=== PATIENT | female | born 1955 | race Caucasian/White ===

== ENCOUNTER 2018-09-05 17:50 | Inpatient (IN) | payer OTHER ==
[~2018-09-05] VITALS: Ht 154.9 cm; Wt 37.3 kg
--- NOTE | ~2018-09-05 | O ---
[facility] [place] [address] OPERATIVE REPORT Name: IAN JEAN Room #: 352-P [facility] IN M.R.#: [id number] Admission: 09/05/18 Attend Phys: Emil Putnam MD Discharge: Date of : 59 Report #: [id number] THIS REPORT FOR: //name// CC: [facility] physician/PCP Emil Putnam DATE OF SERVICE: 09/07/2018 PREOPERATIVE DIAGNOSIS: Left hip femoral neck fracture. POSTOPERATIVE DIAGNOSIS: Left hip femoral neck fracture. PROCEDURE: Left hip percutaneous screw fixation femoral neck fracture. SURGEON: Feliz Richey M.D. SEAM STAY STITCHER: Monica Valdivia. ANESTHESIA: General. ESTIMATED BLOOD LOSS: Minimal. DRAINS: None. TOURNIQUETS: None. COMPLICATIONS: None. DESCRIPTION OF PROCEDURE: The patient was brought to the operating room where she was placed under general anesthesia. Once under adequate general anesthesia, she was placed onto the fracture table. The left lower extremity was then placed into traction and reduction maneuver was achieved on the femoral neck fracture. Once reduced as verified under fluoroscopy, the left hip was then prepped and draped in sterile manner. Utilizing fluoroscopy for guidance, three 7.3-mm cannulated screws were then placed under fluoroscopic guidance for fixation in an inverted triangle shape. Once complete, excellent fixation was achieved. The wound was irrigated copiously and closed with 2-0 Vicryl in subcutaneous tissues and renetta for the skin. The wounds were dressed with Xeroform, 4 x 4s, and sterile soft compressive dressing was placed. There were no complications from the procedure. The patient tolerated the procedure well and went to the recovery room without incident. By: [id number] Feliz Richey MD /nt
--- NOTE | ~2018-09-05 | HC ---
[facility] [place] [address] CONSULTATION Name: IAN JEAN Room #: 352-P ADM IN M.R.#: [id number] Admission: 09/05/18 Attend Phys: Emil Putnam MD Discharge: Date of : 59 Report #: [id number] THIS REPORT FOR: //name// CC: [facility] physician/PCP Emil Putnam CHIEF COMPLAINT: Left hip pain. HISTORY OF PRESENT ILLNESS: The patient is a pleasant 63-year-old female who was admitted directly from the [facility] yesterday for a left hip fracture. She had an unwitnessed fall on Tuesday afternoon sometime between 2:00 and 6:00 p.m., but was not found until 3:00 a.m. Tuesday by her boyfriend. He was unable to get her up, so he called the patient's son. He called 911 and is there when the paramedics showed up to get her off of the floor. She complained of left hip pain at that time and was taken to the Emergency Department at [facility]. She had x-rays taken in the Emergency Department there showing a left hip fracture and was transferred to [facility] for further care. ALLERGIES: ACETAMINOPHEN, AMOXICILLIN, BISMUTH SUBSALICYLATE, BUPROPION, CAMPHOR, CARBAMAZEPINE, CYCLOBENZAPRINE, EUCALYPTUS, MENTHOL, PETROLEUM, SOAP, TURPENTINE. MEDICATIONS: Please see MAR for current medications. HOME MEDICATIONS: Include Lexapro, Cymbalta, Neurontin, clonazepam, Advair, Spiriva, Remeron, ProAir, nicotine transdermal patch, Flonase. PAST MEDICAL AND SURGICAL HISTORY: Significant for COPD, breast cancer with right mastectomy, skull fracture, anxiety, depression, GERD. SOCIAL HISTORY: The patient reports that she lives at home, is on 3 liters of oxygen at home, typically ambulates without assistance. She is a former smoker with a 46-blze-qavv history, she quit smoking less than a year ago. The patient does report past alcohol use daily, but quit drinking approximately 1 year ago. PHYSICAL EXAMINATION: VITAL SIGNS: Temperature 36.7 degrees, pulse 100, blood pressure 117/80, bedside pulse oximetry is 99. GENERAL: The patient is awake and alert, in no acute distress; she is mildly confused; her son is at bedside. EXTREMITIES: Bilateral lower extremities are neurovascularly intact. The patient denies any tenderness to palpation of the anterior, lateral, or posterior hip. She also denies any tenderness to palpation of the thigh or knee. The patient does complain of pain with motion of the left hip. IMAGING: Two views of the left hip performed on 09/06/2018 show a subcapital [address] [address] CONSULTATION Name: IAN JEAN Room #: 352-P [facility] IN M.R.#: [id number] Admission: 09/05/18 Attend Phys: Emil Putnam MD Discharge: Date of : 59 Report #: [id number] left hip fracture, although this appears minimally displaced on the frontal view. The lateral view suggests there is almost complete displacement at the fracture site. The pelvis and right hip are intact. IMPRESSION: Minimally displaced left subcapital femoral neck fracture. PLAN: Discussed with the patient and her son the treatment options of the patient's left hip fracture, discussed that after reviewing her x-rays, Dr. Rodriguez believe that she is a candidate for a left hip percutaneous pinning. Discussed postoperative rehabilitation course that she would need to remain nonweightbearing on the left hip for 8-12 weeks. Also discussed the need to take follow up radiographs to assess fracture healing. We are awaiting pulmonary clearance, once this has been obtained, then we could proceed with surgery for the left hip. We will plan for surgery tomorrow pending pulmonary clearance. By: 1615 02 DELIO Hanley /nt
[2018-09-05 19:17] VITALS: BP 157/80
[2018-09-05] MEDS ORDERED: LEXAPRO 10 MG T10 M2 PO (20:18)
[2018-09-05] MEDS ORDERED: CYMBALTA30 MG PO (20:18)
[2018-09-05] MEDS ORDERED: NEURONTIN 400400 M1 (20:19)
[2018-09-05] MEDS ORDERED: CLONAZEPAM 0.50.5 M1 (20:20)
[2018-09-05] MEDS ORDERED: ADVAIR HFA 230M12 GM INH (20:22)
[2018-09-05] MEDS ORDERED: SPIRIVA INH (20:22)
[2018-09-05] MEDS ORDERED: REMERON15 MG PO (20:22)
[2018-09-05] MEDS ORDERED: PROAIR RESPICL90 MCG (20:25)
[2018-09-05] MEDS ORDERED: FLONASE 0.05%50 MCG NASAL (20:25)
[2018-09-05] MEDS ORDERED: NICOTINE TRANSD21 M1 (20:25)
[2018-09-05 23:50] LABS: BE(vivo) 20.5 mmol/L (-2 to +3); HCO3 50.1 mmol/L (22.0-26.0); PCO2 85.7 mmHg (35.0-45.0); PO2 67.5 mmHg (80.0-100.0); pH 7.385 (7.360-7.450)
[2018-09-06 01:15] VITALS: BP 148/86
[2018-09-06 02:02] LABS: URINE BILIRUBIN NEGATIVE (Negative); URINE BLOOD 2+ (Negative); URINE CLARITY CLEAR; URINE COLOR YELLOW; URINE GLUCOSE-RANDOM* NEGATIVE (Negative); URINE KETONES TRACE (Negative); URINE LEUKOCYTES-REFLEX NEGATIVE (Negative); URINE NITRITE-REFLEX NEGATIVE (Negative); URINE PROTEIN (DIPSTICK) 1+ (Negative); URINE SPECIFIC GRAVITY 1.015 (1.005-1.035)
[2018-09-06 02:17] LABS: CASTS None Seen /LPF (None Seen); SQUAMOUS 0-3 Few /LPF (0-3); URINE WBC-REFLEX 0-5 Rare /HPF (0-5)
[2018-09-06 02:18] LABS: CRYSTALS None Seen /LPF (None Seen)
[2018-09-06 04:25] VITALS: BP 153/93
[2018-09-06 05:39] LABS: HEMATOCRIT 35.3 % (37.0-47.0); HEMOGLOBIN 11.8 gm/dL (12.0-15.0); MCH 31.7 pg (26.0-34.0); MCHC 33.4 g/dL (28.0-37.0); MCV 95.1 fL (80.0-100.0); RBC 3.71 mil/uL (4.20-5.00); RDW 13.4 % (10.5-14.5); WBC 5.1 thou/uL (4.0-11.0)
[2018-09-06 05:49] LABS: PROTIME 10.1 Seconds (9.3-11.4)
[2018-09-06 05:52] LABS: ALBUMIN 3.5 g/dL (3.4-5.0); ANION GAP 1 mmol/L (7-16); BUN 8 mg/dL (7-18); CALCIUM 9.4 mg/dL (8.5-10.1); CHLORIDE 93 mmol/L (98-107); CO2 42 mmol/L (21-32); CREATININE 0.4 mg/dL (0.6-1.0); GLUCOSE 108 mg/dL (74-106); MAGNESIUM 2.6 mg/dL (1.8-2.4); POTASSIUM 3.9 mmol/L (3.5-5.1); SGOT 17 U/L (15-37); SGPT 21 U/L (30-65); SODIUM 136 mmol/L (136-145); TOTAL BILIRUBIN 0.8 mg/dL (<0.1-1.0); TOTAL PROTEIN 6.8 g/dL (6.4-8.2); TROPONIN-I <0.06 ng/mL (<0.06)
[2018-09-06 09:07] VITALS: BP 117/80
[2018-09-06 09:24] LABS: BE(vivo) 14.6 mmol/L (-2 to +3); HCO3 42.1 mmol/L (22.0-26.0); PO2 90.9 mmHg (80.0-100.0); pH 7.419 (7.360-7.450); sO2 96.8 % (92.0-98.0)
[2018-09-06 09:25] LABS: PCO2 66.5 mmHg (35.0-45.0)
[2018-09-06 16:14] VITALS: BP 139/82
[2018-09-06 19:08] VITALS: BP 122/84
[2018-09-07] VITALS (15 sets, daily range): BP systolic 109–155; BP diastolic 50–89
[2018-09-07 09:13] LABS: HEMATOCRIT 33.4 % (37.0-47.0); HEMOGLOBIN 11.3 gm/dL (12.0-15.0); MCH 31.8 pg (26.0-34.0); MCHC 33.9 g/dL (28.0-37.0); MCV 93.9 fL (80.0-100.0); RBC 3.56 mil/uL (4.20-5.00); RDW 13.5 % (10.5-14.5); WBC 5.7 thou/uL (4.0-11.0)
[2018-09-07 09:21] LABS: CALCIUM 9.4 mg/dL (8.5-10.1); CREATININE 0.4 mg/dL (0.6-1.0); POTASSIUM 3.8 mmol/L (3.5-5.1)
[2018-09-08 04:04] VITALS: BP 115/66
[2018-09-08 07:45] VITALS: BP 148/82
[2018-09-08 08:06] LABS: HEMATOCRIT 31.7 % (37.0-47.0); HEMOGLOBIN 10.7 gm/dL (12.0-15.0); MCH 32.2 pg (26.0-34.0); MCHC 33.6 g/dL (28.0-37.0); MCV 95.6 fL (80.0-100.0); RBC 3.31 mil/uL (4.20-5.00); RDW 13.2 % (10.5-14.5); WBC 6.1 thou/uL (4.0-11.0)
[2018-09-08 08:17] LABS: ANION GAP < 0 mmol/L (7-16); BUN 7 mg/dL (7-18); CALCIUM 8.9 mg/dL (8.5-10.1); CHLORIDE 95 mmol/L (98-107); CO2 41 mmol/L (21-32); CREATININE 0.4 mg/dL (0.6-1.0); GLUCOSE 130 mg/dL (74-106); MAGNESIUM 1.6 mg/dL (1.8-2.4); POTASSIUM 3.7 mmol/L (3.5-5.1); SODIUM 135 mmol/L (136-145)
[2018-09-08 11:41] VITALS: BP 142/77
[2018-09-08 15:42] VITALS: BP 152/92
[2018-09-08 21:14] VITALS: BP 140/82
[2018-09-09] VITALS (7 sets, daily range): BP systolic 107–142; BP diastolic 51–81
[2018-09-09 05:50] LABS: HEMATOCRIT 33.1 % (37.0-47.0); HEMOGLOBIN 11.1 gm/dL (12.0-15.0); MCH 32.1 pg (26.0-34.0); MCHC 33.4 g/dL (28.0-37.0); MCV 96.2 fL (80.0-100.0); RBC 3.44 mil/uL (4.20-5.00); RDW 13.5 % (10.5-14.5); WBC 4.4 thou/uL (4.0-11.0)
[2018-09-09 06:07] LABS: CALCIUM 8.9 mg/dL (8.5-10.1); CREATININE 0.3 mg/dL (0.6-1.0); MAGNESIUM 1.6 mg/dL (1.8-2.4)
[2018-09-10 03:50] VITALS: BP 118/63
[2018-09-10 04:17] LABS: BE(vivo) 21.3 mmol/L (-2 to +3); HCO3 52.8 mmol/L (22.0-26.0); sO2 93.7 % (92.0-98.0)
[2018-09-10 04:18] LABS: PCO2 117.9 mmHg (35.0-45.0); pH 7.269 (7.360-7.450)
[2018-09-10 06:41] LABS: HEMATOCRIT 29.5 % (37.0-47.0); HEMOGLOBIN 9.6 gm/dL (12.0-15.0); MCH 31.7 pg (26.0-34.0); MCHC 32.6 g/dL (28.0-37.0); MCV 97.3 fL (80.0-100.0); RBC 3.03 mil/uL (4.20-5.00); RDW 13.6 % (10.5-14.5); WBC 3.5 thou/uL (4.0-11.0)
[2018-09-10 06:53] LABS: BUN 11 mg/dL (7-18); CALCIUM 8.9 mg/dL (8.5-10.1); CHLORIDE 96 mmol/L (98-107); CREATININE 0.4 mg/dL (0.6-1.0); GLUCOSE 87 mg/dL (74-106); MAGNESIUM 1.7 mg/dL (1.8-2.4); POTASSIUM 4.7 mmol/L (3.5-5.1); SODIUM 141 mmol/L (136-145)
[2018-09-10 07:02] LABS: CO2 > 45 mmol/L (21-32)
[2018-09-10 07:26] VITALS: BP 118/65
[2018-09-10 07:38] LABS: BE(vivo) 17.5 mmol/L (-2 to +3); HCO3 46.8 mmol/L (22.0-26.0); PO2 89.9 mmHg (80.0-100.0); pH 7.333 (7.360-7.450); sO2 95.7 % (92.0-98.0)
[2018-09-10 07:39] LABS: PCO2 90.2 mmHg (35.0-45.0)
[2018-09-10 11:23] VITALS: BP 152/72
[2018-09-10 15:23] VITALS: BP 130/74
[2018-09-10 19:20] VITALS: BP 109/67
[2018-09-11 04:10] VITALS: BP 110/55
[2018-09-11 05:39] LABS: HEMATOCRIT 27.6 % (37.0-47.0); HEMOGLOBIN 9.1 gm/dL (12.0-15.0); MCHC 32.9 g/dL (28.0-37.0); MCV 97.2 fL (80.0-100.0); RBC 2.84 mil/uL (4.20-5.00); WBC 3.9 thou/uL (4.0-11.0)
[2018-09-11 05:53] LABS: BUN 12 mg/dL (7-18); CALCIUM 8.6 mg/dL (8.5-10.1); CHLORIDE 97 mmol/L (98-107); CREATININE 0.4 mg/dL (0.6-1.0); GLUCOSE 102 mg/dL (74-106); MAGNESIUM 1.6 mg/dL (1.8-2.4); POTASSIUM 4.2 mmol/L (3.5-5.1); SODIUM 140 mmol/L (136-145)
[2018-09-11 05:56] LABS: CO2 > 45 mmol/L (21-32)
[2018-09-11 07:32] VITALS: BP 97/51
[2018-09-11 08:25] LABS: BE(vivo) 15.1 mmol/L (-2 to +3); HCO3 44.2 mmol/L (22.0-26.0); PO2 77.8 mmHg (80.0-100.0); sO2 93.4 % (92.0-98.0)
[2018-09-11 08:26] LABS: PCO2 90.3 mmHg (35.0-45.0); pH 7.308 (7.360-7.450)
[2018-09-11 10:29] LABS: BE(vivo) 19.6 mmol/L (-2 to +3); HCO3 47.8 mmol/L (22.0-26.0); pH 7.394 (7.360-7.450); sO2 94.4 % (92.0-98.0)
[2018-09-11 11:29] VITALS: BP 137/71
[2018-09-11 15:37] VITALS: BP 127/76
[2018-09-11 19:15] VITALS: BP 114/67
[2018-09-12 04:00] VITALS: BP 117/70
[2018-09-12 05:44] LABS: HEMATOCRIT 26.7 % (37.0-47.0); HEMOGLOBIN 8.9 gm/dL (12.0-15.0); MCH 32.1 pg (26.0-34.0); MCHC 33.4 g/dL (28.0-37.0); MCV 96.1 fL (80.0-100.0); RBC 2.77 mil/uL (4.20-5.00); RDW 13.5 % (10.5-14.5); WBC 4.4 thou/uL (4.0-11.0)
[2018-09-12 05:55] LABS: ANION GAP < 0 mmol/L (7-16); BUN 14 mg/dL (7-18); CALCIUM 9.1 mg/dL (8.5-10.1); CHLORIDE 98 mmol/L (98-107); CO2 44 mmol/L (21-32); CREATININE 0.3 mg/dL (0.6-1.0); GLUCOSE 108 mg/dL (74-106); MAGNESIUM 1.8 mg/dL (1.8-2.4); POTASSIUM 3.9 mmol/L (3.5-5.1); SODIUM 140 mmol/L (136-145)
[2018-09-12 07:38] VITALS: BP 145/76
[2018-09-12 08:15] VITALS: BP 119/73
[2018-09-12 10:32] LABS: BE(vivo) 19.1 mmol/L (-2 to +3); HCO3 47.8 mmol/L (22.0-26.0); PO2 66.5 mmHg (80.0-100.0); pH 7.376 (7.360-7.450); sO2 91.5 % (92.0-98.0)
[2018-09-12 10:33] LABS: PCO2 83.4 mmHg (35.0-45.0)
[2018-09-12 11:36] VITALS: BP 121/74
[2018-09-12 13:39] LABS: BE(vivo) 15.5 mmol/L (-2 to +3); HCO3 44.5 mmol/L (22.0-26.0); PCO2 79.3 mmHg (35.0-45.0); PO2 64.6 mmHg (80.0-100.0); pH 7.367 (7.360-7.450); sO2 90.8 % (92.0-98.0)
[2018-09-12] MEDS ORDERED: IPRAT-ALBUT 0.5-3 ML INH ×2 (13:55)
[2018-09-12] MEDS ORDERED: ENOXAPARIN30 MG/0.1 SUBQ (13:55)
[2018-09-12] MEDS ORDERED: SIMETHICON CHEW80 M1 PO (13:55)
[2018-09-12] MEDS ORDERED: PREDNISONE 5 MG5 M1 PO (13:55)
[2018-09-12] MEDS ORDERED: MIRALAX17 GM PO (13:55)
[2018-09-12] MEDS ORDERED: PREDNISONE 20 M20 MG PO (13:55)
[2018-09-12] MEDS ORDERED: PREDNISONE 10 M10 MG PO (13:55)
[2018-09-12] MEDS ORDERED: COLACE100 MG PO (13:55)
[2018-09-12] MEDS ORDERED: PULMICORT0.5 MG/22 INH (13:55)
[2018-09-12] MEDS ORDERED: OXYCODONE HCL30 MG PO (13:58)
== END 2018-09-12 16:29 | DRG 480 ==
LOC: 3W 17:50 → EDBD 18:38 → 3W 23:59
PROVIDERS: Anesthesiology; Internal Medicine; Nurse Practitioner Acute Care; Orthopaedic Surgery Sports Medicine; Pediatrics
PROC: 5A09457 Assistance with Respiratory Ventilation, 24-96 Consecutive Hours, Continuous Positive Airway Pressure (ICD-10-PCS; principal; 2018-09-05)
PROC: 5A09357 Assistance with Respiratory Ventilation, Less than 24 Consecutive Hours, Continuous Positive Airway Pressure (ICD-10-PCS; 2018-09-06)
PROC: 5A09357 Assistance with Respiratory Ventilation, Less than 24 Consecutive Hours, Continuous Positive Airway Pressure (ICD-10-PCS; 2018-09-07)
PROC: 0QS734Z Reposition Left Upper Femur with Internal Fixation Device, Percutaneous Approach (ICD-10-PCS; 2018-09-07)
PROC: 5A09357 Assistance with Respiratory Ventilation, Less than 24 Consecutive Hours, Continuous Positive Airway Pressure (ICD-10-PCS; 2018-09-08)
PROC: 5A09357 Assistance with Respiratory Ventilation, Less than 24 Consecutive Hours, Continuous Positive Airway Pressure (ICD-10-PCS; 2018-09-09)
PROC: 5A09357 Assistance with Respiratory Ventilation, Less than 24 Consecutive Hours, Continuous Positive Airway Pressure (ICD-10-PCS; 2018-09-10)
PROC: 5A09357 Assistance with Respiratory Ventilation, Less than 24 Consecutive Hours, Continuous Positive Airway Pressure (ICD-10-PCS; 2018-09-11)
PROC: 5A09357 Assistance with Respiratory Ventilation, Less than 24 Consecutive Hours, Continuous Positive Airway Pressure (ICD-10-PCS; 2018-09-12)
DX: S72.012A Unspecified intracapsular fracture of left femur, initial encounter for closed fracture (principal); J96.22 Acute and chronic respiratory failure with hypercapnia; E43 Unspecified severe protein-calorie malnutrition; J96.21 Acute and chronic respiratory failure with hypoxia; S42.202A Unspecified fracture of upper end of left humerus, initial encounter for closed fracture; S42.291A Other displaced fracture of upper end of right humerus, initial encounter for closed fracture; G93.49 Other encephalopathy; J44.1 Chronic obstructive pulmonary disease with (acute) exacerbation; Z68.1 Body mass index [BMI] 19.9 or less, adult; D64.9 Anemia, unspecified; D69.6 Thrombocytopenia, unspecified; W19.XXXA Unspecified fall, initial encounter; F41.9 Anxiety disorder, unspecified; F32.9 Major depressive disorder, single episode, unspecified; K21.9 Gastro-esophageal reflux disease without esophagitis; E83.42 Hypomagnesemia; Y99.8 Other external cause status; Z88.6 Allergy status to analgesic agent; Z88.1 Allergy status to other antibiotic agents; Y92.89 Other specified places as the place of occurrence of the external cause; Z88.8 Allergy status to other drugs, medicaments and biological substances; Y93.89 Activity, other specified; Z79.899 Other long term (current) drug therapy; Z90.11 Acquired absence of right breast and nipple; Z91.02 Food additives allergy status; Z91.048 Other nonmedicinal substance allergy status; Z85.3 Personal history of malignant neoplasm of breast; Z87.891 Personal history of nicotine dependence; Z79.51 Long term (current) use of inhaled steroids
CPT/HCPCS: 10779; 10879; 50010; 50101; 50386; 51412; 51538; 53400; 53404; 56525; 57092; 62110; 62900; 70005

== ENCOUNTER 2018-09-12 15:33 | Inpatient (IN) | payer OTHER ==
[~2018-09-12] VITALS: Ht 154.9 cm; Wt 42.2 kg
--- NOTE | ~2018-09-12 | H ---
[facility] [place] [address] HISTORY AND PHYSICAL Name: IAN JEAN Room #: 514-P ADM IN M.R.#: [id number] Admission: 09/12/18 Attend Phys: Serjio Pedro MD Discharge: Date of : 59 Report #: [id number] THIS REPORT FOR: //name// CC: Serjio Pedro [facility] physician/PCP DATE OF SERVICE: 09/12/2018 HISTORY AND PHYSICAL/POSTADMISSION PHYSICIAN EVALUATION HISTORY OF PRESENT ILLNESS: The patient is a 63-year-old white female, originally presented to [facility] on 09/05/2018 after an unwitnessed fall. She was unable to bear weight due to severe pain of her left hip. She was found to have an elevated CO2, acute respiratory failure due to COPD, and hypercapnic encephalopathy. CT confirmed left femoral neck fracture and she underwent left hip pinning on 09/07/2018 by orthopedic services. She is allowed toe-touch weightbearing. She also was noted to have a left humerus fracture, mildly displaced. Initially, she was placed in an immobilizer, and now, she is allowed weightbearing in a brace, as it was felt that the risk versus benefit ratio would favor conservative management for her. She does have acute hypercapnic respiratory failure secondary to chronic obstructive pulmonary disease. She also was noted to have thrombocytopenia, anemia, protein-calorie malnutrition with weight loss, and hypomagnesemia. She has significant functional mobility and ADL deficits and has been admitted for acute in-hospital inpatient rehabilitation. There also is a history of moderate cognitive and memory deficits and she did have encephalopathy as noted above. PAST MEDICAL HISTORY: Includes heart disease, hypertension, lung disease, very severe COPD, chronic hypoxemic hypercapnic respiratory failure. HABITS: Tobacco abuse. SOCIAL HISTORY: She lives in a single tameka house with her best friend, no entry stairs, no stairs inside. Also includes 3 children who do not live nearby, but son is noted to be supportive. Her best friend is noted to be a male and he works often, but can help when needed. FAMILY HISTORY: Positive for cancer with her father apparently having prostate cancer, son had brain tumor, and her mother was noted to have COPD as well. ALLERGIES: SHE DOES HAVE MULTIPLE ALLERGIES, SEE THE FULL LISTING. MEDICATIONS: Please see the full medication listing, this includes vitamins, herbals, and supplements. REVIEW OF SYSTEMS: She did not offer any current complaints of chest pain, [address] [address] HISTORY AND PHYSICAL Name: IAN JEAN Room #: 514-P [facility] IN ..#: [id number] Admission: 09/12/18 Attend Phys: Serjio Pedro MD Discharge: Date of : 59 Report #: [id number] shortness of breath or abdominal discomfort. She does have some discomfort of the left shoulder area as expected. PHYSICAL EXAMINATION: GENERAL: A 63-year-old small statured, thin, white female in no obvious distress. She is alert, pleasant, follows basic 1 step commands. VITAL SIGNS: Last recorded temperature 99.5, pulse 105, respirations 18, blood pressure 140/86. HEENT: Facies are symmetric. She is on nasal prong O2, currently 3 liters. CHEST: Diffuse decreased breath sounds. CARDIAC: Sounded regular rate and rhythm. ABDOMEN: Bowel sounds are positive, nontender. GENITOURINARY AND RECTAL: Deferred. NEUROMUSCULOSKELETAL: She has functional range of motion of the right upper and right lower extremity without focal weakness. Left upper extremity is in a rigid splint of the proximal left upper extremity. It allows elbow flexion, extension, and wrist movement. No focal weakness of that wrist and no edema of the wrist and hand. She is able to move, flexion and extension at the elbow, but has a little discomfort with this. She is allowed weightbearing as tolerated, but notes that there is some discomfort with this. Left lower extremity reveals the left hip incision with dressing in place. No calf swelling. She can move the left ankle. She has been min assist with sit to stand and transfers and is unable to ambulate. ASSESSMENT: 1. Left femoral neck fracture, status post pinning 09/07/2018, toe-touch weightbearing. 2. Mild displaced left humerus fracture, weightbearing as tolerated in brace. 3. Acute hypercapnic encephalopathy. 4. Acute hypercapnic respiratory failure secondary to chronic obstructive pulmonary disease. 5. Protein-calorie malnutrition with weight loss. 6. Anemia. 7. Thrombocytopenia. 8. Hypomagnesemia. 9. Tobacco abuse history. 10. Moderate cognitive/memory deficits. PLAN: The patient is admitted for acute in-hospital inpatient rehabilitation. From a postadmission physician evaluation perspective, there are no relevant changes since the preadmission screening. Please see the review of prior and current medical and functional conditions and comorbidities. Please see the patient's previous and current functional status. As far as risk of complications, the patient does have multiple medical comorbidities as noted above. Initial plan of care involves the interdisciplinary acute inpatient rehabilitation program with the goal of maximizing the patient's functional [address] [address] HISTORY AND PHYSICAL Name: IAN JEAN Room #: 514-P ADM IN M.R.#: [id number] Admission: 09/12/18 Attend Phys: Serjio Pedro MD Discharge: Date of : 59 Report #: [id number] independence, so she can hopefully return back to her prior living situation. Measurable functional goals would be for the patient to become modified independent with transfers, mobility, ADLs, and improvement in cognition, so she can return to the home setting. Goal would be home at a wheelchair level. We will need to work with family training in this regard as well. Prognosis is reasonably good with the estimated length of stay probably at least 2-3 weeks. Potential barriers would include her multiple medical comorbidities and decreased functional status. <ELECTRONICALLY SIGNED> By: Serjio Pedro MD 09/22/18 1414 [id number] [id number] Serjio Pedro MD /nt
--- NOTE | ~2018-09-12 | PLAN ---
[facility] [place] [address] REHAB UNIT PLAN OF CARE Name: IAN JEAN Room #: 514-P ADM IN M.R.#: [id number] Admission: 09/12/18 Attend Phys: Serjio Pedro MD Discharge: Date of : 59 Report #: [id number] THIS REPORT FOR: //name// CC: Serjio Pedro [facility] physician/PCP DATE OF SERVICE: 09/15/2018 PROGRESS NOTE AND OVERALL PLAN OF CARE SUBJECTIVE: The patient is seen back today in followup. She is in no distress. Temperature 99.4, pulse 93, respirations 16, blood pressure 154/84. She was in no distress. No calf swelling. Transfers are min assist. She is allowed toe-touch weightbearing left lower extremity. She can weightbear through the left upper extremity with the brace in place. Sit to stand is min assist for standing assistance. She stood for greater than one minute. She does have some difficulty trying to weightbear through the left upper extremity due to pain. Bed mobility is min assist. ASSESSMENT: 1. Left femoral neck fracture status post pinning on 09/07/2018, toe-touch weightbearing. 2. Mild displaced left humerus fracture, weightbearing as tolerated in brace. 3. Acute hypercapnic respiratory failure secondary to chronic obstructive pulmonary disease. 4. Protein calorie malnutrition. 5. Anemia. 6. Thrombocytopenia. 7. Hypomagnesemia. 8. Tobacco abuse history. 9. Moderate cognitive/memory deficits. PLAN: The overall plan of care is based on the preadmission screen, post-admission physician evaluation and information garnered from therapy assessments. 1. Estimated length of stay is probably 2-3 weeks and possibly longer depending upon how she does. 2. Medical prognosis is reasonably good. 3. Anticipated interventions includes the interdisciplinary acute inpatient rehabilitation program. 4. Anticipated functional outcomes would be for the patient to try to achieve independence at a wheelchair level. 5. Discharge destination would be to the home setting where she lives with her best friend and additional family support. 6. Expected therapy by discipline includes PT and OT and speech 1 hour per day each five days a week throughout the duration of the acute inpatient [address] [address] REHAB UNIT PLAN OF CARE Name: IAN JEAN Room #: 514-P ADM IN [facility].#: [id number] Admission: 09/12/18 Attend Phys: Serjio Pedro MD Discharge: Date of : 59 Report #: [id number] rehabilitation stay. She may not need the continued speech therapy, but we will see how she does. She did have the encephalopathy and we will be following along regarding her cognitive memory deficits as well. By: [id number] Serjio Pedro MD /nt
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
[~2018-09-12 15:33] MED LIST: ADVAIR HFA 230M12 GM INH; CLONAZEPAM 0.50.5 M1; COLACE100 MG PO; CYMBALTA30 MG PO; ENOXAPARIN30 MG/0.1 SUBQ; FLONASE 0.05%50 MCG NASAL; IPRAT-ALBUT 0.5-3 ML INH; LEXAPRO 10 MG T10 M2 PO; MIRALAX17 GM PO; NEURONTIN 400400 M1; NICOTINE TRANSD21 M1; OXYCODONE HCL30 MG PO; PREDNISONE 10 M10 MG PO; PREDNISONE 20 M20 MG PO; PREDNISONE 5 MG5 M1 PO; PROAIR RESPICL90 MCG; PULMICORT0.5 MG/22 INH; REMERON15 MG PO; SIMETHICON CHEW80 M1 PO; SPIRIVA INH
[2018-09-12 16:36] VITALS: BP 140/86
[2018-09-12 20:00] VITALS: BP 115/68
[2018-09-13 06:09] LABS: HEMATOCRIT 27.4 % (37.0-47.0); HEMOGLOBIN 9.3 gm/dL (12.0-15.0); MCH 32.2 pg (26.0-34.0); MCHC 33.8 g/dL (28.0-37.0); MCV 95.4 fL (80.0-100.0); RBC 2.87 mil/uL (4.20-5.00); RDW 13.9 % (10.5-14.5); WBC 5.7 thou/uL (4.0-11.0)
[2018-09-13 06:17] LABS: ANION GAP < 0 mmol/L (7-16); BUN 16 mg/dL (7-18); CALCIUM 9.1 mg/dL (8.5-10.1); CHLORIDE 100 mmol/L (98-107); CO2 41 mmol/L (21-32); CREATININE 0.4 mg/dL (0.6-1.0); GLUCOSE 85 mg/dL (74-106); POTASSIUM 4.2 mmol/L (3.5-5.1); SODIUM 138 mmol/L (136-145)
[2018-09-13 08:00] VITALS: BP 127/80
[2018-09-13 18:00] LABS: FOLIC ACID 11.6 ng/mL (8.6-58.9)
[2018-09-14 08:10] VITALS: BP 122/66
[2018-09-14 20:11] VITALS: BP 154/84
[2018-09-15 08:00] VITALS: BP 126/71
[2018-09-15 12:00] VITALS: BP 125/96
[2018-09-15 20:09] VITALS: BP 138/70
[2018-09-16 08:09] VITALS: BP 136/75
[2018-09-16 11:54] VITALS: BP 142/77
[2018-09-16 19:45] VITALS: BP 111/63
[2018-09-17 07:50] VITALS: BP 141/72
[2018-09-17 20:15] VITALS: BP 123/71
[2018-09-18 06:17] LABS: ABSOLUTE NEUTROPHILS 4.4 thou/uL (1.4-8.2); BASOPHILS 1.3 % (0.0-2.0); EOSINOPHILS 1.8 % (0.0-3.0); HEMATOCRIT 28.5 % (37.0-47.0); HEMOGLOBIN 9.3 gm/dL (12.0-15.0); LYMPHOCYTES 20.9 % (24.0-44.0); MCH 31.7 pg (26.0-34.0); MCHC 32.5 g/dL (28.0-37.0); MCV 97.3 fL (80.0-100.0); MONOCYTES 7.2 % (1.0-8.0); PLATELET COUNT 297 thou/uL (150-400); POLYS 68.8 % (36.0-66.0); RBC 2.93 mil/uL (4.20-5.00); RDW 15.1 % (10.5-14.5); WBC 6.4 thou/uL (4.0-11.0)
[2018-09-18 06:35] LABS: CALCIUM 8.6 mg/dL (8.5-10.1); CREATININE 0.3 mg/dL (0.6-1.0); MAGNESIUM 1.9 mg/dL (1.8-2.4); POTASSIUM 4.3 mmol/L (3.5-5.1)
[2018-09-18 07:56] VITALS: BP 143/83
[2018-09-18 20:41] VITALS: BP 133/74
[2018-09-19 08:22] VITALS: BP 127/64
[2018-09-19 21:10] VITALS: BP 114/86
[2018-09-20 08:00] VITALS: BP 144/80
[2018-09-20 19:43] VITALS: BP 121/49; BP 130/77
[2018-09-21 08:51] VITALS: BP 124/77
[2018-09-21 19:45] VITALS: BP 133/85
[2018-09-22 07:51] VITALS: BP 124/75
[2018-09-22 19:30] VITALS: BP 121/73
[2018-09-23 07:42] VITALS: BP 129/71
[2018-09-23 20:00] VITALS: BP 148/64
[2018-09-24 07:42] VITALS: BP 132/84
[2018-09-24 19:34] VITALS: BP 131/56
[2018-09-25 07:42] VITALS: BP 128/75
[2018-09-25 20:55] VITALS: BP 130/76
[2018-09-26 05:46] LABS: HEMATOCRIT 33.4 % (37.0-47.0); MCHC 32.9 g/dL (28.0-37.0); MCV 97.3 fL (80.0-100.0); PLATELET COUNT 221 thou/uL (150-400); RBC 3.43 mil/uL (4.20-5.00); RDW 15.4 % (10.5-14.5); WBC 4.6 thou/uL (4.0-11.0)
[2018-09-26 05:59] LABS: CALCIUM 9.1 mg/dL (8.5-10.1); CREATININE 0.3 mg/dL (0.6-1.0); MAGNESIUM 1.9 mg/dL (1.8-2.4); POTASSIUM 4.6 mmol/L (3.5-5.1)
[2018-09-26 09:19] LABS: ABSOLUTE NEUTROPHILS 2.8 thou/uL (1.4-8.2); PLATELET ESTIMATE NORMAL
[2018-09-26 09:45] VITALS: BP 148/80
[2018-09-26 14:26] VITALS: BP 148/80
[2018-09-26] MEDS ORDERED: ASPIR 8181 M1 PO (14:30)
[2018-09-26] MEDS ORDERED: TRAMADOL 50 MG50 MG PO (14:30)
[2018-09-26] MEDS ORDERED: VITAMIN B-12500 MCG PO (14:30)
[2018-09-26] MEDS ORDERED: VOLTAREN100 GM TOP (14:30)
[2018-09-26] MEDS ORDERED: IRON325 PO (14:30)
[2018-09-26] MEDS ORDERED: TUMS PO (14:30)
[2018-09-26] MEDS ORDERED: MIRALAX17 GM PO (14:30)
[2018-09-26] MEDS ORDERED: IPRAT-ALBUT 0.5-3 ML INH (14:30)
== END 2018-09-26 15:44 | disposition home health service (06) | DRG 535 ==
LOC: ENTRNSPT 09-26 15:34 → EDTRNSPTSTS 09-26 15:38
PROVIDERS: Nurse Practitioner; Nurse Practitioner Family
PROC: 5A09357 Assistance with Respiratory Ventilation, Less than 24 Consecutive Hours, Continuous Positive Airway Pressure (ICD-10-PCS; principal; 2018-09-12)
PROC: 5A09357 Assistance with Respiratory Ventilation, Less than 24 Consecutive Hours, Continuous Positive Airway Pressure (ICD-10-PCS; 2018-09-13)
PROC: 5A09357 Assistance with Respiratory Ventilation, Less than 24 Consecutive Hours, Continuous Positive Airway Pressure (ICD-10-PCS; 2018-09-15)
PROC: 5A09357 Assistance with Respiratory Ventilation, Less than 24 Consecutive Hours, Continuous Positive Airway Pressure (ICD-10-PCS; 2018-09-16)
PROC: 5A09357 Assistance with Respiratory Ventilation, Less than 24 Consecutive Hours, Continuous Positive Airway Pressure (ICD-10-PCS; 2018-09-18)
PROC: 5A09357 Assistance with Respiratory Ventilation, Less than 24 Consecutive Hours, Continuous Positive Airway Pressure (ICD-10-PCS; 2018-09-19)
PROC: 5A09357 Assistance with Respiratory Ventilation, Less than 24 Consecutive Hours, Continuous Positive Airway Pressure (ICD-10-PCS; 2018-09-20)
PROC: 5A09357 Assistance with Respiratory Ventilation, Less than 24 Consecutive Hours, Continuous Positive Airway Pressure (ICD-10-PCS; 2018-09-21)
PROC: 5A09357 Assistance with Respiratory Ventilation, Less than 24 Consecutive Hours, Continuous Positive Airway Pressure (ICD-10-PCS; 2018-09-22)
PROC: 5A09357 Assistance with Respiratory Ventilation, Less than 24 Consecutive Hours, Continuous Positive Airway Pressure (ICD-10-PCS; 2018-09-23)
PROC: 5A09357 Assistance with Respiratory Ventilation, Less than 24 Consecutive Hours, Continuous Positive Airway Pressure (ICD-10-PCS; 2018-09-24)
PROC: 5A09357 Assistance with Respiratory Ventilation, Less than 24 Consecutive Hours, Continuous Positive Airway Pressure (ICD-10-PCS; 2018-09-25)
DX: S72.002A Fracture of unspecified part of neck of left femur, initial encounter for closed fracture (principal); J96.22 Acute and chronic respiratory failure with hypercapnia; J96.21 Acute and chronic respiratory failure with hypoxia; S42.215A Unspecified nondisplaced fracture of surgical neck of left humerus, initial encounter for closed fracture; G93.49 Other encephalopathy; E46 Unspecified protein-calorie malnutrition; J44.1 Chronic obstructive pulmonary disease with (acute) exacerbation; Z68.1 Body mass index [BMI] 19.9 or less, adult; D64.9 Anemia, unspecified; D69.6 Thrombocytopenia, unspecified; E83.42 Hypomagnesemia; G31.84 Mild cognitive impairment of uncertain or unknown etiology; W18.39XA Other fall on same level, initial encounter; F31.9 Bipolar disorder, unspecified; F41.9 Anxiety disorder, unspecified; I10 Essential (primary) hypertension; R53.81 Other malaise; K59.00 Constipation, unspecified; Y93.89 Activity, other specified; Y92.89 Other specified places as the place of occurrence of the external cause; Y99.8 Other external cause status; Z87.891 Personal history of nicotine dependence; Z82.5 Family history of asthma and other chronic lower respiratory diseases
CPT/HCPCS: 10112